=== PATIENT | female | born 1975 | race Caucasian/White ===

== ENCOUNTER 2016-06-26 07:33 | Emergency (ER) | payer OTHER ==
[~2016-06-26] VITALS: Wt 79.4 kg
[~2016-06-26 07:33] MED LIST: AMOXICILLIN500 M2 PO
[2016-06-26 07:40] VITALS: BP 142/46
[2016-06-26] MEDS ORDERED: NOVAPLUS V0.09 MG/Ac INH (07:41)
[2016-06-26] MEDS ORDERED: DELTASONE20 M1 PO (09:31)
== END 2016-06-26 09:39 | disposition home or self-care (01) ==
LOC: ED 07:33
DX: T63.441A Toxic effect of venom of bees, accidental (unintentional), initial encounter (principal)

== ENCOUNTER 2016-10-17 16:51 | Emergency (ER) | payer OTHER ==
[~2016-10-17] VITALS: Ht 175.2 cm; Wt 99.8 kg
[~2016-10-17 16:51] MED LIST changes: +DELTASONE20 M1 PO; +NOVAPLUS V0.09 MG/Ac INH
[2016-10-17 17:07] VITALS: BP 156/81
[2016-10-17] MEDS ORDERED: NAPROSYN500 MG PO (17:10)
== END 2016-10-17 18:33 | disposition home or self-care (01) ==
LOC: ED 16:51
DX: S93.402A Sprain of unspecified ligament of left ankle, initial encounter (principal); R03.0 Elevated blood-pressure reading, without diagnosis of hypertension; Z91.030 Bee allergy status; W01.0XXA Fall on same level from slipping, tripping and stumbling without subsequent striking against object, initial encounter; Y93.89 Activity, other specified; Y92.59 Other trade areas as the place of occurrence of the external cause; Y99.8 Other external cause status

== ENCOUNTER → 2019-05-09 | Outpatient (CLI) | payer SELFPAY ==
[~2019-05-09] MED LIST changes: +NAPROSYN500 MG PO
== END | disposition home or self-care (01) ==
LOC: CANPRECLI → RAD 14:00
DX: J45.909 Unspecified asthma, uncomplicated (principal); A15.8 Other respiratory tuberculosis; R05 Cough; J00 Acute nasopharyngitis [common cold]